=== PATIENT | female | born 1980 | race African-American/Black ===

== ENCOUNTER 2019-11-20 11:49 | Emergency (ER) | payer MEDICAID, OTHER ==
[~2019-11-20] VITALS: Ht 165.1 cm; Wt 112.0 kg
[2019-11-20] MEDS ORDERED: SODIUM CHLORIDE 0.9% 1,000 ML IV ONE (12:08)
[2019-11-20] MEDS ORDERED: TRAMADOL 50MG TABLET PO ONE (13:30)
[2019-11-20 14:04] LABS: CLARITY URINE CLEAR (CLEAR); COLOR URINE YELLOW (YELLOW); KETONES URINE NEGATIVE (NEGATIVE); LEUKOCYTE ESTERASE URINE TRACE (NEGATIVE); NITRITE URINE NEGATIVE (NEGATIVE); OCCULT BLOOD URINE 3+ (NEGATIVE); PH URINE 6.5 (4.5-8.0); PROTEIN URINE NEGATIVE (NEGATIVE); SPECIFIC GRAVITY URINE 1.015 (1.005-1.030); UROBILINOGEN URINE 0.2 E.U./dL (0.2-1.0)
[2019-11-20 15:09] LABS: BASOPHILS % 0.8 % (0.0-2.0); EOSINOPHILS % 0.5 % (0.0-5.0); HEMATOCRIT. 43.1 % (36.0-48.0); HEMOGLOBIN. 14.5 g/dL (12.0-16.0); LYMPHOCYTES % 14.8 % (20.0-50.0); MEAN CORPUSCULAR HEMOGLOBIN 29.7 pg (28.0-32.0); MEAN CORPUSCULAR VOLUME 88.2 fL (81.0-99.0); MEAN PLATELET VOLUME 9.5 fl (7.4-10.4); MONOCYTES % 2.7 % (2.0-8.0); NEUTROPHILS % 81.2 % (40.0-76.0); PLATELET 311 x1000/uL (130-400); RED BLOOD CELL COUNT 4.89 mill/uL (4.2-5.4); RED CELL DISTRIBUTION WIDTH 14.1 % (11.6-14.6)
[2019-11-20 15:13] LABS: CHLORIDE 107 mEq/L (98-107)
[2019-11-20 16:20] VITALS: BP 143/87
== END 2019-11-20 16:22 | disposition home or self-care (01) ==
LOC: ER 11:49
DX: R42 Dizziness and giddiness (principal); N39.0 Urinary tract infection, site not specified; I10 Essential (primary) hypertension; L08.9 Local infection of the skin and subcutaneous tissue, unspecified; J45.909 Unspecified asthma, uncomplicated; Z88.8 Allergy status to other drugs, medicaments and biological substances
CPT/HCPCS: 36415; 71045; 73660; 80053; 81003; 81025; 84484; 85025; 93005; 96360; 96361; 99285; J7030

== ENCOUNTER 2021-12-10 01:19 | Emergency (ER) | payer MEDICAID ==
[~2021-12-10] VITALS: Ht 162.6 cm; Wt 135.0 kg
[2021-12-10 04:49] LABS: BASOPHILS % 0.5 % (0.0-2.0); EOSINOPHILS % 3.6 % (0.0-5.0); HEMATOCRIT. 41.9 % (36.0-48.0); HEMOGLOBIN. 13.7 g/dL (12.0-16.0); LYMPHOCYTES % 44.7 % (20.0-50.0); MEAN CORPUSCULAR HEMOGLOBIN 28.4 pg (28.0-32.0); MEAN PLATELET VOLUME 9.2 fl (7.4-10.4); MONOCYTES % 6.5 % (2.0-8.0); NEUTROPHILS % 44.7 % (40.0-76.0); PLATELET 300 x1000/uL (130-400); RED BLOOD CELL COUNT 4.81 mill/uL (4.2-5.4); RED CELL DISTRIBUTION WIDTH 13.3 % (11.6-14.6)
[2021-12-10 05:37] LABS: HCG SCREEN NEGATIVE
[2021-12-10 06:32] VITALS: BP 147/60
[2021-12-10 07:02] LABS: CHLORIDE 108 mEq/L (98-107)
== END 2021-12-10 06:25 | disposition home or self-care (01) ==
LOC: ER 01:35
DX: D25.9 Leiomyoma of uterus, unspecified (principal); N83.201 Unspecified ovarian cyst, right side; I10 Essential (primary) hypertension
CPT/HCPCS: 36415; 76830; 76856; 80048; 84703; 85025; 86850; 86900; 99284

== ENCOUNTER 2022-03-30 21:24 | Emergency (ER) | payer MEDICAID ==
[~2022-03-30] VITALS: Ht 162.6 cm; Wt 141.4 kg
[2022-03-30 21:30] VITALS: BP 161/81
[2022-03-30 22:55] LABS: BASOPHILS % 0.5 % (0.0-2.0); EOSINOPHILS % 2.3 % (0.0-5.0); HEMATOCRIT. 33.7 % (36.0-48.0); HEMOGLOBIN. 10.8 g/dL (12.0-16.0); LYMPHOCYTES % 29.9 % (20.0-50.0); MEAN CORPUSCULAR HEMOGLOBIN 23.5 pg (28.0-32.0); MEAN CORPUSCULAR VOLUME 73.4 fL (81.0-99.0); MEAN PLATELET VOLUME 8.3 fl (7.4-10.4); MONOCYTES % 7.2 % (2.0-8.0); NEUTROPHILS % 60.1 % (40.0-76.0); PLATELET 413 x1000/uL (130-400); RED BLOOD CELL COUNT 4.59 mill/uL (4.2-5.4)
[2022-03-30 23:01] LABS: CHLORIDE 105 mEq/L (98-107)
[2022-03-30] MEDS ORDERED: P50 MT (23:52)
[2022-03-30] MEDS ORDERED: AZIT250T12 MT (23:52)
[2022-03-31 00:09] LABS: HCG SCREEN NEGATIVE
== END 2022-03-31 00:36 | disposition home or self-care (01) ==
LOC: ER 21:24
DX: J18.9 Pneumonia, unspecified organism (principal); I10 Essential (primary) hypertension; Z88.8 Allergy status to other drugs, medicaments and biological substances; Z98.890 Other specified postprocedural states
CPT/HCPCS: 36415; 71045; 80053; 84484; 84703; 85025; 93005; 99285

== ENCOUNTER 2022-09-17 04:08 | Emergency (ER) | payer MEDICAID ==
[~2022-09-17] VITALS: Ht 162.6 cm; Wt 141.0 kg
[~2022-09-17 04:08] MED LIST: AZIT250T12 MT; P50 MT
[2022-09-17 04:10] VITALS: O2SAT 99
[2022-09-17] MEDS ORDERED: ASPIRIN 81MG TABLET PO ONE (05:15)
[2022-09-17 05:37] LABS: BASOPHILS % 0.3 % (0.0-2.0); CHLORIDE 109 mEq/L (98-107); EOSINOPHILS % 3.3 % (0.0-5.0); HEMATOCRIT. 33.7 % (36.0-48.0); HEMOGLOBIN. 10.8 g/dL (12.0-16.0); LYMPHOCYTES % 29.6 % (20.0-50.0); MEAN CORPUSCULAR VOLUME 75.2 fL (81.0-99.0); MEAN PLATELET VOLUME 9.2 fl (7.4-10.4); MONOCYTES % 8.2 % (2.0-8.0); NEUTROPHILS % 58.6 % (40.0-76.0); PLATELET 409 x1000/uL (130-400); RED BLOOD CELL COUNT 4.49 mill/uL (4.2-5.4); RED CELL DISTRIBUTION WIDTH 18.2 % (11.6-14.6)
[2022-09-17 08:09] VITALS: BP 148/92; PULSE 87; RESP 16; TEMP 98.6
== END 2022-09-17 08:03 | disposition home or self-care (01) ==
LOC: ER 05:15
DX: R07.89 Other chest pain (principal); D64.9 Anemia, unspecified; J45.909 Unspecified asthma, uncomplicated; I10 Essential (primary) hypertension; F12.10 Cannabis abuse, uncomplicated; Z87.01 Personal history of pneumonia (recurrent)
CPT/HCPCS: 80053; 85025; 84484; 36415; 71045; 93005; 99285; Z7610

== ENCOUNTER 2023-01-26 21:50 | Emergency (ER) | payer MEDICAID ==
[~2023-01-26] VITALS: Ht 162.6 cm; Wt 140.0 kg
[2023-01-26 21:53] VITALS: O2SAT 98
[2023-01-26 23:08] LABS: BASOPHILS % 0.8 % (0.0-2.0); DIFFERENTIAL COMMENT 0; EOSINOPHILS % 4.2 % (0.0-5.0); HEMATOCRIT. 33.4 % (36.0-48.0); HEMOGLOBIN. 10.3 g/dL (12.0-16.0); LYMPHOCYTES % 34.6 % (20.0-50.0); MEAN CORPUSCULAR VOLUME 71.2 fL (81.0-99.0); MEAN PLATELET VOLUME 8.3 fl (7.4-10.4); MONOCYTES % 6.7 % (2.0-8.0); NEUTROPHILS % 53.7 % (40.0-76.0); PLATELET 462 x1000/uL (130-400); RED BLOOD CELL COUNT 4.69 mill/uL (4.2-5.4); RED CELL DISTRIBUTION WIDTH 17.9 % (11.6-14.6); WHITE BLOOD COUNT 9.1 x1000/uL (4.5-11.0)
[2023-01-26 23:17] LABS: HCG SCREEN NEGATIVE
[2023-01-26 23:18] LABS: CHLORIDE 107 mEq/L (98-107); INDEX HEMOLYSI 1 (1-3); INDEX ICTERIC 1 (1-4); INDEX LIPEMIC 1 (1-3); POTASSIUM 4.1 mEq/L (3.5-5.1); SODIUM 138 mEq/L (136-145)
[2023-01-26 23:25] LABS: ALANINE AMINOTRANSFERASE 37 IU/L (13-61); ALBUMIN 3.5 g/dL (3.4-5.0); ASPARTATE AMINOTRANSFERASE 26 IU/L (15-37); BILIRUBIN TOTAL 0.2 mg/dL (0.1-1.0); CALCIUM 9.1 mg/dL (8.5-10.1); CARBON DIOXIDE 25 mEq/L (21-32); CREATININE 0.6 mg/dL (0.6-1.3); GLUCOSE 97 mg/dL (70-105); PROTEIN TOTAL 8.2 g/dL (6.0-8.3); UREA NITROGEN BLOOD 11 mg/dL (7-21)
[2023-01-27] MEDS ORDERED: KETOROLAC 60MG/2ML VIAL IM ONE (00:30)
[2023-01-27 00:48] VITALS: BP 157/95
[2023-01-27] MEDS ORDERED: AZIT250T12 MT (00:58)
[2023-01-27 01:30] VITALS: PULSE 78; RESP 16; TEMP 98.6
== END 2023-01-27 01:32 | disposition home or self-care (01) ==
LOC: ER 21:50
DX: R05.9 Cough, unspecified (principal); R19.7 Diarrhea, unspecified; M19.90 Unspecified osteoarthritis, unspecified site; J45.909 Unspecified asthma, uncomplicated; I10 Essential (primary) hypertension; F12.90 Cannabis use, unspecified, uncomplicated; Z88.8 Allergy status to other drugs, medicaments and biological substances; Z98.890 Other specified postprocedural states
CPT/HCPCS: 99284; 71046; 80053; 84703; 85025; 36415; 81025; 96372; J1885

== ENCOUNTER 2023-03-26 23:54 | Emergency (ER) | payer MEDICAID ==
[~2023-03-26] VITALS: Ht 162.6 cm; Wt 140.0 kg
[2023-03-27 00:13] VITALS: BP 167/107; PULSE 84; RESP 16; TEMP 98.5; O2SAT 99
[2023-03-27] MEDS ORDERED: HYDROCODONE/ACETAMINOPHEN 5/325MG TABLET PO ONE (01:15)
[2023-03-27] MEDS ORDERED: NAPR-1176 MT (03:21)
[2023-03-27] MEDS ORDERED: CYCL10TA21 MT (03:21)
== END 2023-03-27 03:59 | disposition home or self-care (01) ==
LOC: ER 23:54
DX: S80.02XA Contusion of left knee, initial encounter (principal); S20.229A Contusion of unspecified back wall of thorax, initial encounter; D64.9 Anemia, unspecified; J45.909 Unspecified asthma, uncomplicated; I10 Essential (primary) hypertension; Z87.01 Personal history of pneumonia (recurrent); F12.10 Cannabis abuse, uncomplicated; W18.39XA Other fall on same level, initial encounter; Y93.89 Activity, other specified; Y92.89 Other specified places as the place of occurrence of the external cause; Y99.8 Other external cause status
CPT/HCPCS: 81025; 99284; 71045; 73562; 73590; 72128; Z7610

== ENCOUNTER 2023-10-10 17:02 | Emergency (ER) | payer MEDICAID ==
[~2023-10-10] VITALS: Ht 162.6 cm; Wt 138.3 kg
[~2023-10-10 17:02] MED LIST changes: +CYCL10TA21 MT; +NAPR-1176 MT
[2023-10-10 17:12] VITALS: TEMP 98.3; O2SAT 100
[2023-10-10 18:18] LABS: BASOPHILS % 0.8 % (0.0-2.0); DIFFERENTIAL COMMENT 0; HEMATOCRIT. 35.4 % (36.0-48.0); HEMOGLOBIN. 11.6 g/dL (12.0-16.0); LYMPHOCYTES % 34.2 % (20.0-50.0); MEAN CORPUSCULAR HEMOGLOBIN 25.7 pg (28.0-32.0); MEAN CORPUSCULAR HGB CONC 32.7 g/dL (31.0-37.0); MEAN CORPUSCULAR VOLUME 78.7 fL (81.0-99.0); MEAN PLATELET VOLUME 8.5 fl (7.4-10.4); MONOCYTES % 6.5 % (2.0-8.0); NEUTROPHILS % 55.5 % (40.0-76.0); PLATELET 384 x1000/uL (130-400); RED CELL DISTRIBUTION WIDTH 18.3 % (11.6-14.6); WHITE BLOOD COUNT 8.2 x1000/uL (4.5-11.0)
[2023-10-10 18:21] LABS: CARBON DIOXIDE 25 mEq/L (21-32); CHLORIDE 107 mEq/L (98-107); POTASSIUM 4.1 mEq/L (3.5-5.1); SODIUM 136 mEq/L (136-145)
[2023-10-10] MEDS: KETOROLAC 30MG/ML VIAL IM ONE (18:26)
[2023-10-10 18:27] LABS: CREATININE 0.6 mg/dL (0.6-1.0); GLUCOSE 88 mg/dL (70-105); UREA NITROGEN BLOOD 7 mg/dL (9-23)
[2023-10-10 18:29] LABS: ALANINE AMINOTRANSFERASE 20 IU/L (10-49); ALBUMIN 4.1 g/dL (3.2-4.8); ASPARTATE AMINOTRANSFERASE 20 IU/L (<34); BILIRUBIN DIRECT 0.1 mg/dL (<=3.0); BILIRUBIN TOTAL 0.4 mg/dL (0.1-1.0)
[2023-10-10 18:46] LABS: TROPONIN I HIGH SENSITIVITY < 4 ng/L (3.0-34)
[2023-10-10 20:53] LABS: CLARITY URINE CLEAR (CLEAR); COLOR URINE YELLOW (YELLOW); GLUCOSE URINE NEGATIVE (NEGATIVE); KETONES URINE NEGATIVE (NEGATIVE); LEUKOCYTE ESTERASE URINE 2+ (NEGATIVE); NITRITE URINE NEGATIVE (NEGATIVE); OCCULT BLOOD URINE TRACE (NEGATIVE); PROTEIN URINE NEGATIVE (NEGATIVE); SPECIFIC GRAVITY URINE 1.023 (1.005-1.030); UROBILINOGEN URINE 0.2 E.U./dL (0.2-1.0)
[2023-10-10 21:05] LABS: BACTERIA URINE 1+; RBC URINE 0-2 /hpf (0-2); SQUAMOUS EPITHELIAL CELL URINE 1+ /lpf (RARE/1+)
[2023-10-10 21:35] VITALS: BP 138/80; PULSE 80; RESP 18
[2023-10-10] MEDS ORDERED: NAPR220C61 MT (21:37)
== END 2023-10-10 21:37 | disposition home or self-care (01) ==
LOC: ER 17:02
DX: R10.12 Left upper quadrant pain (principal); F12.10 Cannabis abuse, uncomplicated; J45.909 Unspecified asthma, uncomplicated; I10 Essential (primary) hypertension; Z88.6 Allergy status to analgesic agent; Z98.890 Other specified postprocedural states
CPT/HCPCS: 99285; 76705; 71045; 80076; 80048; 81003; 83690; 85025; 85379; 84484; 36415; 93005; 96372; J1885

== ENCOUNTER 2023-11-17 21:38 | Emergency (ER) | payer MEDICAID ==
[~2023-11-17] VITALS: Ht 162.6 cm; Wt 134.0 kg
[~2023-11-17 21:38] MED LIST changes: +NAPR220C61 MT
[2023-11-17 21:41] VITALS: TEMP 98.4; O2SAT 99
[2023-11-17] MEDS: DEXAMETHASONE 10 MG/ML VIAL IM ONE (22:54)
[2023-11-18] MEDS ORDERED: AMOX1TAB16 MT (00:11)
[2023-11-18 00:22] VITALS: BP 150/92; PULSE 100; RESP 18; O2SAT 99
== END 2023-11-18 00:24 | disposition home or self-care (01) ==
LOC: ER 21:38
DX: R09.81 Nasal congestion (principal); J02.9 Acute pharyngitis, unspecified; D64.9 Anemia, unspecified; J45.909 Unspecified asthma, uncomplicated; I10 Essential (primary) hypertension; F12.10 Cannabis abuse, uncomplicated; Z87.01 Personal history of pneumonia (recurrent); Z79.899 Other long term (current) drug therapy
CPT/HCPCS: 87077; 71045; 96372; 99284; 87430; 87070; J1100; Z7610

== ENCOUNTER 2024-02-21 23:51 | Emergency (ER) | payer MEDICAID ==
[~2024-02-21] VITALS: Ht 162.6 cm; Wt 134.0 kg
[~2024-02-21 23:51] MED LIST changes: +AMOX1TAB16 MT
[2024-02-22 00:17] VITALS: O2SAT 100
[2024-02-22 02:11] LABS: BASOPHILS % 0.5 % (0.0-2.0); EOSINOPHILS % 3.7 % (0.0-5.0); HEMATOCRIT. 33.6 % (36.0-48.0); HEMOGLOBIN. 10.4 g/dL (12.0-16.0); LYMPHOCYTES % 31.3 % (20.0-50.0); MEAN CORPUSCULAR HEMOGLOBIN 21.7 pg (28.0-32.0); MEAN CORPUSCULAR VOLUME 69.9 fL (81.0-99.0); MEAN PLATELET VOLUME 8.4 fl (7.4-10.4); MONOCYTES % 8.1 % (2.0-8.0); NEUTROPHILS % 56.4 % (40.0-76.0); PLATELET 457 x1000/uL (130-400); RED CELL DISTRIBUTION WIDTH 17.8 % (11.6-14.6); WHITE BLOOD COUNT 11.3 x1000/uL (4.5-11.0)
[2024-02-22 02:14] LABS: DIFFERENTIAL COMMENT 1
[2024-02-22 02:15] LABS: ADD RBC MORPHOLOGY YES; CHLORIDE 108 mEq/L (98-107); POTASSIUM 3.7 mEq/L (3.5-5.1); SODIUM 138 mEq/L (136-145)
[2024-02-22 02:16] LABS: CALCIUM 9.3 mg/dL (8.7-10.4); CARBON DIOXIDE 25 mEq/L (21-32)
[2024-02-22 02:21] LABS: CREATININE 0.6 mg/dL (0.6-1.0); GLUCOSE 78 mg/dL (70-105); UREA NITROGEN BLOOD 11 mg/dL (9-23)
[2024-02-22] MEDS: KETOROLAC 30MG/ML VIAL IM ONE (02:24)
[2024-02-22 02:51] LABS: CLARITY URINE CLEAR (CLEAR); COLOR URINE YELLOW (YELLOW); GLUCOSE URINE NEGATIVE (NEGATIVE); KETONES URINE NEGATIVE (NEGATIVE); LEUKOCYTE ESTERASE URINE NEGATIVE (NEGATIVE); NITRITE URINE NEGATIVE (NEGATIVE); OCCULT BLOOD URINE NEGATIVE (NEGATIVE); PH URINE 5.5 (4.5-8.0); PROTEIN URINE NEGATIVE (NEGATIVE); SPECIFIC GRAVITY URINE 1.025 (1.005-1.030); UROBILINOGEN URINE 0.2 E.U./dL (0.2-1.0)
[2024-02-22 03:01] LABS: HYPOCHROMASIA 2+; MICROCYTOSIS 3+
[2024-02-22 03:02] LABS: PLATELET ESTIMATE NORMAL
[2024-02-22 03:20] VITALS: BP 142/85; PULSE 80; RESP 16; TEMP 36.89184; O2SAT 100
== END 2024-02-22 03:21 | disposition home or self-care (01) ==
LOC: ER 23:51
DX: R10.9 Unspecified abdominal pain (principal); D50.9 Iron deficiency anemia, unspecified; R05.9 Cough, unspecified; I10 Essential (primary) hypertension; J45.909 Unspecified asthma, uncomplicated; F12.90 Cannabis use, unspecified, uncomplicated; Z88.6 Allergy status to analgesic agent
CPT/HCPCS: 99284; 81025; 96372; 71045; 80048; 81003; 85025; 36415; J1885

== ENCOUNTER 2024-07-25 23:43 | Emergency (ER) | payer MEDICAID ==
[~2024-07-25] VITALS: Ht 162.6 cm; Wt 130.0 kg
[2024-07-26 00:01] VITALS: O2SAT 100
[2024-07-26 01:43] LABS: BASOPHILS % 0.8 % (0.0-2.0); DIFFERENTIAL COMMENT 0; HEMATOCRIT. 38.2 % (36.0-48.0); HEMOGLOBIN. 12.2 g/dL (12.0-16.0); LYMPHOCYTES % 31.6 % (20.0-50.0); MEAN CORPUSCULAR HEMOGLOBIN 24.3 pg (28.0-32.0); MEAN CORPUSCULAR HGB CONC 32.1 g/dL (31.0-37.0); MEAN CORPUSCULAR VOLUME 75.7 fL (81.0-99.0); MEAN PLATELET VOLUME 8.4 fl (7.4-10.4); MONOCYTES % 5.9 % (2.0-8.0); NEUTROPHILS % 60.7 % (40.0-76.0); PLATELET 368 x1000/uL (130-400); RED BLOOD CELL COUNT 5.04 mill/uL (4.2-5.4); RED CELL DISTRIBUTION WIDTH 18.8 % (11.6-14.6); WHITE BLOOD COUNT 8.1 x1000/uL (4.5-11.0)
[2024-07-26 01:54] LABS: CHLORIDE 105 mEq/L (98-107); POTASSIUM 3.9 mEq/L (3.5-5.1); SODIUM 138 mEq/L (136-145)
[2024-07-26 01:55] LABS: CARBON DIOXIDE 24 mEq/L (21-32)
[2024-07-26 01:56] LABS: CALCIUM 8.8 mg/dL (8.7-10.4)
[2024-07-26 02:00] LABS: CREATININE 0.7 mg/dL (0.6-1.0); GLUCOSE 100 mg/dL (70-105); UREA NITROGEN BLOOD 10 mg/dL (9-23)
[2024-07-26 02:27] LABS: PROTHROMBIN TIME 10.8 sec (9.6-11.0)
[2024-07-26 02:31] LABS: TROPONIN I HIGH SENSITIVITY < 4 ng/L (3.0-34)
[2024-07-26 03:09] LABS: HCG SCREEN NEGATIVE
[2024-07-26] MEDS: DEXAMETHASONE 10 MG/ML VIAL IM ONE (03:17)
[2024-07-26] MEDS ORDERED: METH4TAB95 MT (03:18)
[2024-07-26] MEDS ORDERED: ALBU2.5V13 NEB (03:21)
[2024-07-26 03:55] VITALS: BP 140/62; PULSE 68; RESP 16; TEMP 36.5; O2SAT 100
== END 2024-07-26 03:56 | disposition home or self-care (01) ==
LOC: ER 23:43
DX: I10 Essential (primary) hypertension (principal); J11.1 Influenza due to unidentified influenza virus with other respiratory manifestations; J45.909 Unspecified asthma, uncomplicated; Z76.0 Encounter for issue of repeat prescription; Z96.659 Presence of unspecified artificial knee joint
CPT/HCPCS: 99285; 71045; 80048; 84703; 83880; 83690; 85025; 85610; 84484; 36415; 93005; 96372; J1100

== ENCOUNTER 2025-01-19 22:56 | Emergency (ER) | payer MEDICAID ==
[~2025-01-19] VITALS: Ht 162.6 cm; Wt 135.0 kg
[~2025-01-19 22:56] MED LIST changes: +ALBU2.5V13 NEB; +METH4TAB95 MT
[2025-01-19 23:12] VITALS: O2SAT 98
[2025-01-19 23:14] VITALS: TEMP 36.6
[2025-01-20] MEDS: HYDROCODONE/ACETAMINOPHEN 5/325MG TABLET PO ONE (00:24)
[2025-01-20 01:04] VITALS: BP 147/76; PULSE 74; RESP 16; O2SAT 100
== END 2025-01-20 01:06 | disposition home or self-care (01) ==
LOC: ER 23:10
DX: S60.222A Contusion of left hand, initial encounter (principal); I10 Essential (primary) hypertension; J45.909 Unspecified asthma, uncomplicated; W20.8XXA Other cause of strike by thrown, projected or falling object, initial encounter; Y93.89 Activity, other specified; Y92.89 Other specified places as the place of occurrence of the external cause; Y99.8 Other external cause status
CPT/HCPCS: 29125; 73110; 73130; 81025; 99284